=== PATIENT | male | born 1970 | race Caucasian/White ===

== ENCOUNTER 2016-12-07 21:19 | Emergency (ER) | payer BC ==
[~2016-12-07] VITALS: Ht 177.8 cm; Wt 102.6 kg
[~2016-12-07 21:19] MED LIST: ALPRAZOLAM0.25 MG PO; CLONAZEPAM0.5 MG PO; CYMBALTA60 MG PO; FLOMAX0.4 MG PO; HYDROCHLOROTHIA25 MG PO; LORTAB 5-500 T1 EAC1 PO; METOPROLOL TART50 MG PO; NAPROXEN500 MG PO; TRICOR145 MG PO; ZOFRAN ODT4 MG PO
[2016-12-07 22:37] LABS: ADD MIUA? YES; BILIRUBIN NEGATIVE; BLOOD NEGATIVE; COLOR AMBER ((YELLOW)); GLUCOSE (STRIP) NEGATIVE; KETONES NEGATIVE; LEUKOCYTES NEGATIVE; NITRITE NEGATIVE; PROTEIN (STRIP) 30; SPECIFIC GRAVITY 1.031 (1.000-1.030); UROBILINOGEN 0.2 MG/DL (0.2-1.0)
[2016-12-07 23:01] LABS: BACTERIA NONE SEEN /HPF; EPITHELIAL CELLS RARE /HPF; MUCUS TRACE /LPF; RED BLOOD CELLS 15-20 /HPF (0-5); WHITE BLOOD CELLS 0-5 /HPF (0-5)
[2016-12-07 23:33] LABS: BASOPHIL COUNT 0.1 K/uL (0-0.1); EOSINOPHIL (%) 3.5 % (0-5); EOSINOPHIL COUNT 0.3 K/uL (0-0.3); HEMATOCRIT 43.9 % (38.0-50.0); IMMATURE GRANULOCYTE (%) 0.6 % (0.0-0.7); IMMATURE GRANULOCYTE COUNT 0.1 K/uL; INSTRUMENT ABS NEUTROPHIL CT 4.7 K/uL; LYMPHOCYTE COUNT 2.5 K/uL (1.0-2.8); MCH 30.3 PG (29.0-34.0); MCV 91.6 FL (86-99); MEAN PLAT.VOLUME 9.9 uM^3 (9.0-12.4); MONOCYTE (%) 9.3 % (3-12); MONOCYTE COUNT 0.8 K/uL (0-0.8); NEUTROPHIL (%) 55.6 % (45-76); NEUTROPHIL COUNT 4.7 K/uL (1.8-6.4); PLATELET COUNT 353 K/uL (156-360); RBC DIS.WIDTH-SD 43.8 % (39-53); RED BLOOD COUNT 4.79 M/uL (4.00-5.50); WHITE BLOOD COUNT 8.4 K/uL (4.1-10.2)
[2016-12-07 23:43] LABS: CHLORIDE 110 mEq/L (99-109); POTASSIUM 3.6 mEq/L (3.7-5.4); SODIUM 141 mEq/L (136-147)
[2016-12-07 23:45] LABS: GLUCOSE 111 mg/dL (70-99)
[2016-12-07 23:46] LABS: ANION GAP 9 MEQ/L (2-14)
[2016-12-07 23:47] LABS: TOTAL BILIRUBIN 0.3 mg/dL (0.0-1.0)
[2016-12-07 23:48] LABS: ALKALINE PHOSPHATASE 90 IU/L (3-129)
[2016-12-07 23:49] LABS: GFR ESTIMATE (CALCULATED) > 59 mL/min/
[2016-12-07 23:50] LABS: UREA NITROGEN (BUN) 19 mg/dL (9-23)
[2016-12-07 23:52] LABS: LIPASE 27 U/L (1.0-51.0)
[2016-12-08] MEDS ORDERED: MOTRIN800 MG PO (00:01)
[2016-12-08] MEDS ORDERED: NORCO 10/3251 TABLET PO (00:01)
[2016-12-08 00:23] VITALS: BP 121/67
== END 2016-12-08 00:24 | disposition home or self-care (01) ==
LOC: EME 21:19
PROVIDERS: Physician Assistant
DX: N23 Unspecified renal colic (principal); R31.9 Hematuria, unspecified; Z87.442 Personal history of urinary calculi; F17.200 Nicotine dependence, unspecified, uncomplicated
CPT/HCPCS: 74176; 80053; 81003; 83690; 85025; 99281; 99284; J1170; J1885; J3010; J7050